=== PATIENT | male | born 1980 | race Hispanic/Latino ===

== ENCOUNTER 2022-05-16 11:10 | Emergency (ER) | payer OTHER, SELFPAY ==
[2022-05-16] VITALS (9 sets, daily range): BP systolic 146–164; BP diastolic 83–112; PULSE 62–77; RESP 12–20; O2SAT 93–98; BMI 34.2
--- NOTE | 2022-05-16 11:16 | DI.CT.S_ITS ---
PROCEDURE: CT HEAD/BRAIN WO CON INDICATIONS: trauma TECHNIQUE: Noncontrast 4.5 mm thick angled axial sections acquired from the foramen magnum to the vertex, with coronal and sagittal reformats. For radiation dose reduction, the following was used: automated exposure control, adjustment of mA and/or kV according to patient size. COMPARISON: Merged With [facility], CT, CT CERVICAL SPINE WO CON, 05/16/2022, 11:21. FINDINGS: Image quality: Excellent. CSF spaces: Basal cisterns are patent. No extra-axial fluid collections. Ventricles are normal in size and shape. Brain: No midline shift. No intracranial masses or hemorrhage. Clarke-white matter interface is normal. Skull and face: Calvarium and visualized facial bones are intact, without suspicious lesions. Sinuses: Visualized sinuses demonstrate right maxillary sinus mucosal thickening. IMPRESSION: 1. No acute intracranial process. Dictated by: Rehana Donis M.D. on 05/16/2022 at 11:58 Approved by: Rehana Donis M.D. on 05/16/2022 at 11:58
--- NOTE | 2022-05-16 11:16 | DI.CT.S_ITS ---
PROCEDURE: CT CHEST ABD PEL W CON INDICATIONS: trauma TECHNIQUE: After the administration of intravenous contrast, 5 mm thick sections acquired from the lung apices to the symphysis. 2.5 mm thick coronal and sagittal reformats were acquired. Additional 7 mm thick coronal maximum intensity projection (MIP) reformats acquired through the lungs. Optional 10-minute delayed imaging may be performed from the kidneys to the bladder. For radiation dose reduction, the following was used: automated exposure control, adjustment of mA and/or kV according to patient size. COMPARISON: None. FINDINGS: Image quality: Excellent. CHEST: Lungs: No pulmonary contusions or lacerations. No acute airspace opacities. No pneumothorax or hemothorax. Central and peripheral airways appear patent and normal in caliber. Mediastinum: No mediastinal hematomas. Heart size is normal. No pericardial effusion. Thoracic aorta and pulmonary arteries demonstrate normal size and enhancement. No mediastinal or hilar adenopathy. Esophagus is normal in caliber. No hiatal hernia. Chest wall: No rib fractures. No subcutaneous emphysema. No axillary or supraclavicular adenopathy. Thyroid gland is unremarkable. ABDOMEN: Solid organs: Liver is normal in size and enhancement, without lacerations. Gallbladder punctate luminal calcification is present without wall thickening.. Biliary system is non-dilated. Pancreas enhances normally, without transection. Spleen is normal in size and enhancement, without lacerations. No adrenal hematomas. Both kidneys enhance normally, without hydronephrosis or lacerations. Low-attenuation foci are present bilaterally most suggestive of simple cysts. Peritoneum and bowel: No free fluid or air. Unenhanced bowel loops demonstrate normal wall thickness and caliber. Nodes and vessels: No retroperitoneal or mesenteric adenopathy. Aorta and inferior vena cava are normal in size and enhancement. Miscellaneous: No ventral hernias. PELVIS: Genitourinary: Bladder wall thickness is normal. Miscellaneous: No inguinal hernias or adenopathy. Bones: Pelvic ring and hip joints appear intact. No vertebral compression fractures. IMPRESSION: No acute osseous or visceral traumatic injury. Dictated by: Rehana Donis M.D. on 05/16/2022 at 12:12 Approved by: Rehana Donis M.D. on 05/16/2022 at 12:14
--- NOTE | 2022-05-16 11:16 | DI.CT.S_ITS ---
PROCEDURE: CT CERVICAL SPINE WO CON INDICATIONS: trauma TECHNIQUE: Noncontrast 3 mm thick sections acquired from the skull base to the T4 level. Sagittal and coronal reformats were then constructed. For radiation dose reduction, the following was used: automated exposure control, adjustment of mA and/or kV according to patient size. COMPARISON: [facility], CT, CT HEAD/BRAIN WO CON, 05/16/2022, 11:21. FINDINGS: Image quality: Excellent. Bones: No fractures or dislocations. Visualized superior ribs are intact. Soft tissues: Prevertebral soft tissues are normal in thickness. No paravertebral hematomas. No apical pneumothoraces. IMPRESSION: No visualized fracture. Dictated by: Rehana Donis M.D. on 05/16/2022 at 12:08 Approved by: Rehana Donis M.D. on 05/16/2022 at 12:10
--- NOTE | 2022-05-16 11:18 | ED.TRAUMA ---
HPI - Trauma General Chief Complaint: Trauma Stated Complaint: Trauma Time Seen by Provider: 05/16/22 11:16 History of Present Illness HPI narrative: Patient is a 42-year-old male who presents as a trauma. 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 Brief loss of consciousness no nausea vomiting numbness tingling or weakness. He is complaining of some right kind of abdominal pain and hip pain. Along with some neck pain. Not on antiplatelet or anticoagulation medications. No abdominal pain. Related Data Previous Rx's Medication Instructions Recorded hydrocodone 5 mg-acetaminophen 325 1 tab PO Q6H PRN pain #10 tabs 05/16/22 mg tablet Allergies Allergy/AdvReac Type Severity Reaction Status Date / Time No Known Drug Allergies Allergy Verified 05/16/22 11:52 Exam Initial Vital Signs Initial Vital Signs: Vital Signs Pulse Rate 74 05/16/22 11:14 Blood Pressure 159/101 H 05/16/22 11:14 Pulse Oximetry 98 05/16/22 11:14 GENERAL: Alert 42-year-old male appears uncomfortable HEENT: Head abrasion noted posterior and superior 3 cm laceration very good skin approximation bleeding controlled, EOMI, pupils reactive, face symmetric, moist mucous membranes, NECK:on BSP, mild tenderness on the right than the left CARDIOVASCULAR: Regular rate and rhythm without murmurs, rubs or gallops. RESPIRATORY: Breath sounds equal bilaterally, no wheezes rales or rhonchi. No crepitations, no subcutaneous air, chest is nontender, no signs of trauma ABDOMEN: Soft, nontender. Normoactive bowel sounds all 4 quadrants. No guarding or rebound. BACK: Nontender vertebrae, no step-offs, no contusions PELVIS: Mild pain right side EXTREMITIES: Normal range of motion, no clubbing or edema. Right upper extremity: Within normal limits Left upper extremity: Within normal limits Right lower extremity: Within normal limits Left lower extremity:Within normal limits NEUROLOGICAL: Cranial nerves II through XII grossly intact. Normal speech able to lift each leg SKIN: Warm, dry, no petechiae, no rashes or lesions, no contusions or ecchymosis Procedures Laceration Repair Laceration 1: Site: scalp Size (cm): 2 Description: linear Depth: simple, single layer Skin layer closed with: sebastian (1) Course Orders Ordered: Discontinued Medications Hydromorphone HCl (Hydromorphone 0.5 Mg Inj) 0.5 mg IV NOW ONE Stop: 05/16/22 11:44 Last Admin: 05/16/22 11:51 Dose: 0.5 mg Documented By: ERICK Hydromorphone HCl (Hydromorphone 0.5 Mg Inj) 0.5 mg IV NOW ONE Stop: 05/16/22 12:55 Last Admin: 05/16/22 12:58 Dose: 0.5 mg Documented By: ERICK Vital Signs Vital signs: Vital Signs - 8 hr 05/16/22 13:00 05/16/22 13:00 05/16/22 13:01 Pulse Rate 66 63 Respiratory Rate 17 12 Blood Pressure 156/106 H Pulse Oximetry 96 95 Oxygen Delivery Method 05/16/22 13:01 05/16/22 13:29 05/16/22 13:29 Pulse Rate 67 Respiratory Rate 20 Blood Pressure 152/97 H 164/112 H Pulse Oximetry 94 Oxygen Delivery Method Room Air 05/16/22 13:30 Pulse Rate 68 Respiratory Rate 20 Blood Pressure Pulse Oximetry 95 Oxygen Delivery Method Room Air MDM - Trauma Lab Data Result diagrams: 05/16/22 11:20 05/16/22 11:20 Labs: Lab Results 05/16/22 05/16/22 Range/Units 11:20 11:20 WBC 9.5 (4.5-11.0) X10^3/uL RBC 4.80 (4.5-5.9) X10^6/uL Hgb 14.2 (13.5-17.5) g/dL Hct 43.1 (41-53) % MCV 89.8 (80-100) fL MCH 29.5 (26-34) PG MCHC 32.8 (30-36) % RDW 14.0 (11.6-14.8) % Plt Count 235 (150-400) X10^3/uL Neut % (Auto) 63.5 (50-75) % Lymph % (Auto) 25.0 (25-40) % Barron % (Auto) 7.3 (3-14) % Eos % (Auto) 3.7 (2-4) % Baso % (Auto) 0.5 (0-2) % Neut # (Auto) 6000 (3471-7419) /uL Lymph # (Auto) 2400 (8791-4068) /uL Barron # (Auto) 700 (0-900) /uL Eos # (Auto) 400 (0-450) /uL Baso # (Auto) 100 (0-100) /uL Sodium 140 (137-145) mmol/L Potassium 3.8 (3.4-5.1) mmol/L Chloride 105 (98-107) mmol/L Carbon Dioxide 25 (22-32) mmol/L BUN 18 (9-20) mg/dL Creatinine 0.98 (0.66-1.25) mg/dL Estimated GFR > 60 (>60) mL/min BUN/Creatinine Ratio 18.4 (6-22) Glucose 96 (70-100) mg/dL Calcium 8.6 (8.4-10.2) mg/dL Total Bilirubin 0.6 (0.2-1.3) mg/dL AST 41 (17-59) IU/L ALT 30 (<50) IU/L Alkaline Phosphatase 82 (38-126) U/L Total Creatine Kinase 583 H (55-170) U/L CK-MB (CK-2) 2.41 H (<2.37) ng/mL CK-MB (CK-2) Rel Index 0.4 L (1.5-5.0) % Troponin I < 0.012 (0.01-0.034) ng/mL Total Protein 7.9 (6.3-8.2) g/dL Albumin 4.7 (3.5-5.0) g/dL Globulin 3.2 (1.7-4.1) g/dL Albumin/Globulin Ratio 1.5 (1.0-2.8) Lipase 68 (23-300) U/L Imaging Data CT - cervical spine: Radiologist's Impression: Patient: Ray Jung MR#: [id number] : 1980 Acct:[id number] Age/Sex: 42 / M Date of Service: 05/16/22 Loc: ED Accession Number: [id number] ?? Procedure: CT cervical spine wo con Ordering Provider: Maribel Ferro D.O. PROCEDURE:? CT CERVICAL SPINE WO CON ? INDICATIONS:? trauma ? TECHNIQUE:? Noncontrast 3 mm thick sections acquired from the skull base to the T4 level.? Sagittal and coronal reformats were then constructed.? For radiation dose reduction, the following was used:? automated exposure control, adjustment of mA and/or kV according to patient size.? ? COMPARISON:? [facility], CT, CT HEAD/BRAIN WO CON, 05/16/2022, 11:21. ? FINDINGS:? Image quality:? Excellent.? ? Bones:? No fractures or dislocations.? Visualized superior ribs are intact.? ? Soft tissues:? Prevertebral soft tissues are normal in thickness.? No paravertebral hematomas.? No apical pneumothoraces.? ? ? IMPRESSION:? No visualized fracture. ? Dictated by: Rehana Donis M.D. on 05/16/2022 at 12:08 ? ? CT scan - head: Radiologist's Impression: CT Scan Report Signed Patient: Ray Jung MR#: [id number] : 1980 Acct:[id number] Age/Sex: 42 / M Date of Service: 05/16/22 Loc: ED Accession Number: [id number] ?? Procedure: CT head/brain wo con Ordering Provider: Maribel Ferro D.O. PROCEDURE:? CT HEAD/BRAIN WO CON ? INDICATIONS:? trauma ? TECHNIQUE:? Noncontrast 4.5 mm thick angled axial sections acquired from the foramen magnum to the vertex, with coronal and sagittal reformats.? For radiation dose reduction, the following was used:? automated exposure control, adjustment of mA and/or kV according to patient size.? ? COMPARISON:? [facility], CT, CT CERVICAL SPINE WO CON, 05/16/2022, 11:21. ? FINDINGS:? Image quality:? Excellent.? ? CSF spaces:? Basal cisterns are patent.? No extra-axial fluid collections.? Ventricles are normal in size and shape.? ? Brain:? No midline shift.? No intracranial masses or hemorrhage.? Clarke-white matter interface is normal.? ? Skull and face:? Calvarium and visualized facial bones are intact, without suspicious lesions.? ? Sinuses:? Visualized sinuses demonstrate right maxillary sinus mucosal thickening. ? IMPRESSION:? ? 1. No acute intracranial process. ? ? Dictated by: Rehana Donis M.D. on 05/16/2022 at 11:58 CT scan - chest: Radiologist's Impression: CT Scan Report Signed Patient: Ray Jung MR#: [id number] : 1980 Acct:[id number] Age/Sex: 42 / M Date of Service: 05/16/22 Loc: ED Accession Number: [id number] ?? Procedure: CT chest abd pel w con Ordering Provider: Maribel Ferro D.O. PROCEDURE:? CT CHEST ABD PEL W CON ? INDICATIONS:? trauma ? TECHNIQUE:? After the administration of intravenous contrast, 5 mm thick sections acquired from the lung apices to the symphysis.? 2.5 mm thick coronal and sagittal reformats were acquired. ?Additional 7 mm thick coronal maximum intensity projection (MIP) reformats acquired through the lungs.? Optional 10-minute delayed imaging may be performed from the kidneys to the bladder.? For radiation dose reduction, the following was used:? automated exposure control, adjustment of mA and/or kV according to patient size.? ? COMPARISON:? None. ? FINDINGS:? Image quality:? Excellent.? ? CHEST:? Lungs:? No pulmonary contusions or lacerations.? No acute airspace opacities.? No pneumothorax or hemothorax.? Central and peripheral airways appear patent and normal in caliber.? ? Mediastinum:? No mediastinal hematomas.? Heart size is normal.? No pericardial effusion.? Thoracic aorta and pulmonary arteries demonstrate normal size and enhancement.? No mediastinal or hilar adenopathy.? Esophagus is normal in caliber.? No hiatal hernia.? ? Chest wall:? No rib fractures.? No subcutaneous emphysema.? No axillary or supraclavicular adenopathy.? Thyroid gland is unremarkable.? ? ? ABDOMEN:? Solid organs:? Liver is normal in size and enhancement, without lacerations.? Gallbladder punctate luminal calcification is present without wall thickening..? Biliary system is non-dilated.? Pancreas enhances normally, without transection.? Spleen is normal in size and enhancement, without lacerations.? No adrenal hematomas.? Both kidneys enhance normally, without hydronephrosis or lacerations.? Low-attenuation foci are present bilaterally most suggestive of simple cysts. ? Peritoneum and bowel:? No free fluid or air.? Unenhanced bowel loops demonstrate normal wall thickness and caliber.? ? Nodes and vessels:? No retroperitoneal or mesenteric adenopathy.? Aorta and inferior vena cava are normal in size and enhancement.? ? Miscellaneous:? No ventral hernias.? ? ? PELVIS:? Genitourinary:? Bladder wall thickness is normal.? ? Miscellaneous:? No inguinal hernias or adenopathy.? ? Bones:? Pelvic ring and hip joints appear intact.? No vertebral compression fractures.? ? ? IMPRESSION:? ? No acute osseous or visceral traumatic injury. ? Dictated by: Rehana Donis M.D. on 05/16/2022 at 12:12 ? ? MDM Narrative Medical decision making narrative: Patient presents as a trauma. He had plywood fall directly onto his head and then he fell forward. He is having some neck pain. CT scan head neck chest abdomen pelvis are negative. He does have abrasion laceration over the top of scalp. He has been given Dilaudid for pain which seems to help. Blood work is overall reassuring. Filling out L and I paperwork. Laceration head is repaired with 1 staple only. Pretty good skin approximation. Blood work has been reviewed and is within normal limits except for CPK which is mildly elevated at 583 but not considered significant at this time. Discharge Plan Departure Patient Disposition: Home Clinical Impression: Abrasion head, Closed head injury Instructions: DI for Laceration Repair -- Sebastian, Closed Head Injury Activity Restrictions/Additional Instructions: *You have been diagnosed with closed head injury *What to do: At this time have staple removed in about 5-7 days you may return to the emergency department. You may shower and wash with soap and water. *Continue to take medications as directed Thornton 1 tablet every 6 hours if needed for severe pain Ibuprofen 600 mg every if needed for moderate pain *Follow up with your primary care provider in 2-3 days or call [phone] *Return to ER if you should have vomiting worsening headache numbness tingling week or any new, worsening or concerning symptoms CONTROLLED SUBSTANCE DISCHARGE (Narcotoic/benzodiazepine/Flexeril/Phenergan) 1. You have been prescribed narcotic medications, it does have acetaminophen/Tylenol/paracetamol in it, DO NOT TAKE MORE THAN 4,00mg in 24 hours of Tylenol. TRAMADOL DOES NOT CONTAIN TYLENOL 2. Please understand that we cannot provide further refills of narcotics, benzodiazepines or controlled substances through the ED and her pain management will need to be through your provider. 3. While on these medications you cannot drive or operate heavy machinery. 4. You cannot sign legal documents or perform any duties such as this. 5. As long as you're taking opiate pain medications he should also be taking a stool softener such as Colace, Dulcolax, MiraLAX or prune juice, to help avoid constipation. Prescriptions: New hydrocodone-acetaminophen 5-325 mg tablet 1 tab PO Q6H PRN (Reason: pain) Qty: 10 0RF Stand Alone Forms: Patient Portal/API
[2022-05-16 11:39] LABS: Add Manual Diff / Slide Review NO; Basophils Absolute Auto 100 /uL (0-100); Basophils Percent Auto 0.5 % (0-2); Eosinophils Absolute Auto 400 /uL (0-450); Eosinophils Percent Auto 3.7 % (2-4); Hematocrit 43.1 % (41-53); Hemoglobin 14.2 g/dL (13.5-17.5); Lymphocytes Absolute Auto 2400 /uL (1100-4500); Mean Corpuscular HGB Conc 32.8 % (30-36); Mean Corpuscular Hemoglobin 29.5 PG (26-34); Mean Corpuscular Volume 89.8 fL (80-100); Monocytes Absolute Auto 700 /uL (0-900); Monocytes Percent Auto 7.3 % (3-14); Neutrophils Absolute Auto 6000 /uL (1500-7000); Neutrophils Percent Auto 63.5 % (50-75); Platelet Count 235 X10^3/uL (150-400); White Blood Cell Count 9.5 X10^3/uL (4.5-11.0)
[2022-05-16 11:47] LABS: Alanine Aminotransferase 30 IU/L (<50); Albumin 4.7 g/dL (3.5-5.0); Albumin Globulin Ratio 1.5 (1.0-2.8); Alkaline Phosphatase 82 U/L (38-126); Aspartate Aminotransferase 41 IU/L (17-59); BUN Creatinine Ratio 18.4 (6-22); Bilirubin Total 0.6 mg/dL (0.2-1.3); Blood Urea Nitrogen 18 mg/dL (9-20); Calcium 8.6 mg/dL (8.4-10.2); Carbon Dioxide 25 mmol/L (22-32); Chloride 105 mmol/L (98-107); Creatine Kinase 583 U/L (55-170); Estimated Glomerular Filt Rate > 60 mL/min (>60); Globulin 3.2 g/dL (1.7-4.1); Glucose 96 mg/dL (70-100); HEMOLYSIS < 15 (0-50); Lipase 68 U/L (23-300); Potassium 3.8 mmol/L (3.4-5.1); Sodium 140 mmol/L (137-145); Total Protein 7.9 g/dL (6.3-8.2)
[2022-05-16] MEDS: HYDROMORPHONE 0.5 MG INJ IV ×2 (11:51→12:58)
[2022-05-16 11:59] LABS: Troponin I < 0.012 ng/mL (0.01-0.034)
[2022-05-16 12:02] LABS: CKMB % Relative Index 0.4 % (1.5-5.0); Creatine Kinase MB 2.41 ng/mL (<2.37)
== END 2022-05-16 13:35 | disposition home or self-care (01) ==
PROVIDERS: Emergency Provider Emergency Medicine
DX: S09.90XA Unspecified injury of head, initial encounter (principal); M54.2 Cervicalgia; S01.01XA Laceration without foreign body of scalp, initial encounter; R10.9 Unspecified abdominal pain; R74.8 Abnormal levels of other serum enzymes; W17.89XA Other fall from one level to another, initial encounter; Y99.0 Civilian activity done for income or pay
CPT/HCPCS: 36415; 70450; 71260; 72125; 74177; 80053; 82550; 82553; 83690; 84484; 85025; 96374; 96376; 99285; J1170; Q9967